=== PATIENT | female | born 1945 | race American Indian/Alaskan Native ===

== ENCOUNTER 2017-03-23 11:02 | Emergency (ER) | payer MEDICARE ==
[2017-03-23 11:12] VITALS: BMI 31.7
[2017-03-23 11:16] VITALS: TEMP 98.8
[2017-03-23] MEDS ORDERED: Sodium Chloride 0.9% 1,000 ML IV STA (11:49)
[2017-03-23] MEDS ORDERED: Iohexol 240 (50 ml) ONE (12:02)
[2017-03-23 12:19] LABS: BASO # 0.02 K/mm3 (0.0-2.0); BASO % 0.2 % (0.0-3.0); EOS # 0.2 (0.0-0.7); EOS % 1.6 % (1.5-5.0); GRAN # 7.72 (1.4-6.5); GRAN % 75.4 % (50.0-68.0); HEMATOCRIT 34.5 % (36.0-48.0); LYMPH # 1.9 (1.2-3.4); LYMPH % 18.9 % (22.0-35.0); MEAN CELL VOLUME 83.1 fl (80.0-105.0); MEAN CORPUSCULAR HEMOGLOBIN 27.5 pg (25.0-35.0); MONO # 0.4 (0.1-0.6); MONO % 3.9 % (1.0-6.0); RED CELL DISTRIBUTION WIDTH 13.3 % (11.5-14.5); WHITE BLOOD COUNT 10.2 10^3/ul (4.5-11.0)
[2017-03-23 12:28] LABS: URINE BILIRUBIN NEGATIVE (NEGATIVE); URINE BLOOD TRACE-INTACT (NEGATIVE); URINE COLOR LIGHT YELLOW (YELLOW); URINE GLUCOSE (UA) NEGATIVE (NEGATIVE); URINE KETONE NEGATIVE (NEGATIVE); URINE LEUKOCYTE ESTERASE SMALL Leu/uL (NEGATIVE); URINE PROTEIN NEGATIVE mg/dL (<30 mg/dL); URINE UROBILINOGEN 0.2 E.U./dL (<1 E.U./dL)
[2017-03-23 12:29] LABS: ALB/GLOB RATIO 1.1 (1.1-1.8); ALKALINE PHOSPHATASE 80 U/L (38-126); ALT/SGPT 25 U/L (7-56); AST/SGOT 19 U/L (14-36); BILIRUBIN,TOTAL 0.3 mg/dL (0.2-1.3); BLOOD UREA NITROGEN 15 mg/dL (7-21); CALCIUM 9.4 mg/dL (8.4-10.5); CARBON DIOXIDE 30 mmol/L (21-33); CHLORIDE 103 mmol/L (98-107); GFR AFRICAN-AMERICAN > 60; GLUCOSE,RANDOM 96 mg/dL (70-110); LIPASE 34 U/L (23-300); SODIUM 142 mmol/L (132-148); TOTAL PROTEIN 7.2 g/dL (5.8-8.3)
[2017-03-23 12:29] LABS: URINE APPEARANCE CLEAR (CLEAR)
[2017-03-23 12:43] LABS: URINE AMORPHOUS SEDIMENT FEW; URINE BACTERIA MOD (NEG); URINE EPITHELIAL CELLS MANY /hpf (0-5)
[2017-03-23] MEDS ORDERED: Iohexol 350 MG/100 ML VIAL ONE (13:37)
--- NOTE | 2017-03-23 14:16 | CT ---
PROCEDURE: CT Abdomen and Pelvis with contrast HISTORY: diffuse abdominal pain - constipated COMPARISON: None. TECHNIQUE: Contrast dose: 100 cc of Omni 350 Radiation dose: Total exam DLP = 465 mGy-cm. This CT exam was performed using one or more of the following dose reduction techniques: Automated exposure control, adjustment of the mA and/or kV according to patient size, and/or use of iterative reconstruction technique. FINDINGS: LOWER THORAX: Unremarkable. LIVER: Unremarkable. No gross lesion or ductal dilatation. GALLBLADDER AND BILE DUCTS: Unremarkable. PANCREAS: Unremarkable. No gross lesion or ductal dilatation. SPLEEN: Unremarkable. ADRENALS: Unremarkable. No mass. KIDNEYS AND URETERS: Unremarkable. No hydronephrosis. No solid mass. VASCULATURE: Unremarkable. No aortic aneurysm. BOWEL: There is moderate constipation and fecal impaction in the rectum. There are some minimal inflammatory changes around the rectum. APPENDIX: Normal appendix. PERITONEUM: Unremarkable. No free fluid. No free air. LYMPH NODES: Unremarkable. No enlarged lymph nodes. BLADDER: Unremarkable. REPRODUCTIVE: Unremarkable. BONES: No acute fracture. OTHER FINDINGS: None. IMPRESSION: There is moderate constipation and fecal impaction in the rectum. There are some minimal inflammatory changes around the rectum.
--- NOTE | 2017-03-23 14:37 | ED PDOC ---
Arrival/HPI - General Chief Complaint: GI Problem Time Seen by Provider: 03/23/17 11:27 Historian: Patient - History of Present Illness Narrative History of Present Illness (Text): 03/23/17 11:43 A 71 year old female, whose past medical history includes CHF, presents to the emergency department complaining of constipation for 4 days. Patient notes he is eating normally, but denies of any fever, vomiting, dysuria, hematuria, or any other complaints. Also, patient states he has had no recent colonoscopy. PMD: Dr. Perea Time/Duration: < week (4 days) Symptom Onset: Sudden Symptom Course: Unchanged Activities at Onset: Rest, Light Past Medical History - Provider Review Nursing Documentation Reviewed: Yes - Infectious Disease Hx of Infectious Diseases: None - Reproductive Menopause: Yes - Cardiac Hx Congestive Heart Failure: Yes Hx Hypertension: Yes - Psychiatric Hx Substance Use: No - Surgical History Hx Tubal Ligation: Yes - Anesthesia Hx Anesthesia Reactions: No Hx Malignant Hyperthermia: No - Suicidal Assessment Feels Threatened In Home Enviroment: No Family/Social History - Physician Review Nursing Documentation Reviewed: Yes Family/Social History: No Known Family HX Smoking Status: Never Smoked Hx Alcohol Use: No Hx Substance Use: No Allergies/Home Meds Allergies/Adverse Reactions: Allergies No Known Allergies Allergy (Verified 03/17/15 12:38) Home Medications: Home Meds Medication Instructions Recorded Confirmed Carvedilol [Coreg] 25 mg PO BID 03/17/15 03/23/17 hydrALAZINE [hydralazine 25 mg PO DAILY 03/17/15 03/23/17 Hydrochloride] Review of Systems - Physician Review All systems were reviewed & negative as marked: Yes - Review of Systems Constitutional: absent: Fevers Gastrointestinal: Constipation. absent: Vomiting, Food Intolerance Genitourinary Female: absent: Dysuria, Hematuria Physical Exam Vital Signs Reviewed: Yes Vital Signs Temp Pulse Resp BP Pulse Ox 03/23/17 14:43 70 17 131/80 98 03/23/17 12:28 68 18 132/75 100 03/23/17 11:03 98.8 F 72 18 134/78 100 Temperature: Afebrile Blood Pressure: Normal Pulse: Regular Respiratory Rate: Normal Appearance: Positive for: Well-Appearing Pain Distress: None Mental Status: Positive for: Alert and Oriented X 3 - Systems Exam Head: Present: Atraumatic, Normocephalic Pupils: Present: PERRL Extroacular Muscles: Present: EOMI Conjunctiva: Present: Normal Mouth: Present: Moist Mucous Membranes Neck: Present: Normal Range of Motion Respiratory/Chest: Present: Clear to Auscultation, Good Air Exchange. No: Respiratory Distress, Accessory Muscle Use Cardiovascular: Present: Regular Rate and Rhythm, Normal S1, S2. No: Murmurs Abdomen: Present: Normal Bowel Sounds. No: Tenderness, Distention, Peritoneal Signs Back: Present: Normal Inspection Upper Extremity: Present: Normal Inspection. No: Cyanosis, Edema Lower Extremity: Present: Normal Inspection. No: Edema Neurological: Present: GCS=15, CN II-XII Intact, Speech Normal Skin: Present: Warm, Dry, Normal Color. No: Rashes Psychiatric: Present: Alert, Oriented x 3, Normal Insight, Normal Concentration Medical Decision Making ED Course and Treatment: 03/23/17 11:50 Impression: Plan: -- Abd/Pelvis CT -- Labs -- IV Fluids -- Urine Culture -- Urinalysis -- Reassess and disposition Prior Visits: Notes and results from previous visits were reviewed. On 03/17/2015 patient came in complaining of left shoulder pain. Patient was discharged home. Progress Notes: 03/23/2017 14:14 Abd/Pelvis CT FINDINGS: LOWER THORAX: Unremarkable. LIVER: Unremarkable. No gross lesion or ductal dilatation. GALLBLADDER AND BILE DUCTS: Unremarkable. PANCREAS: Unremarkable. No gross lesion or ductal dilatation. SPLEEN: Unremarkable. ADRENALS: Unremarkable. No mass. KIDNEYS AND URETERS: Unremarkable. No hydronephrosis. No solid mass. VASCULATURE: Unremarkable. No aortic aneurysm. BOWEL: There is moderate constipation and fecal impaction in the rectum. There are some minimal inflammatory changes around the rectum. APPENDIX: Normal appendix. PERITONEUM: Unremarkable. No free fluid. No free air. LYMPH NODES: Unremarkable. No enlarged lymph nodes. BLADDER: Unremarkable. REPRODUCTIVE: Unremarkable. BONES: No acute fracture. OTHER FINDINGS: None. IMPRESSION: There is moderate constipation and fecal impaction in the rectum. There are some minimal inflammatory changes around the rectum. Dictator : Xavier Nunez MD - Lab Interpretations Lab Results: 03/23/17 11:50 03/23/17 11:50 Lab Results 03/23/17 12:23: Urine Color Light yellow, Urine Appearance Clear, Urine pH 6.0, Ur Specific [place] 1.020, Urine Protein Negative, Urine Glucose (UA) Negative, Urine Ketones Negative, Urine Blood Trace-intact H, Urine Nitrate Negative, Urine Bilirubin Negative, Urine Urobilinogen 0.2, Ur Leukocyte Esterase Small H , Urine RBC 1 - 3, Urine WBC 5 - 10, Ur Epithelial Cells Many, Amorphous Sediment Few, Urine Bacteria Mod, Urine Other Uyeast 03/23/17 11:50: Sodium 142, Potassium 4.0, Chloride 103, Carbon Dioxide 30, Anion Gap 13, BUN 15, Creatinine 0.8, Est GFR ( Amer) > 60, Est GFR (Non- Af Amer) > 60, Random Glucose 96, Calcium 9.4, Total Bilirubin 0.3, AST 19, ALT 25, Alkaline Phosphatase 80, Total Protein 7.2, Albumin 3.8, Globulin 3.4, Albumin/Globulin Ratio 1.1, Lipase 34 03/23/17 11:50: WBC 10.2, RBC 4.15, Hgb 11.4 L, Hct 34.5 L, MCV 83.1, MCH 27.5, MCHC 33.0, RDW 13.3, Plt Count 327, MPV 9.0, Gran % 75.4 H, Lymph % (Auto) 18.9 L, [place] % (Auto) 3.9, Eos % (Auto) 1.6, Baso % (Auto) 0.2, Gran # 7.72 H, Lymph # 1.9, [place] # 0.4, Eos # 0.2, Baso # 0.02 I have reviewed the lab results: Yes - RAD Interpretation Radiology Orders: 03/23/17 11:49 ABD PELVIS PO & IV CONTRAST [CT] Stat - Medication Orders Current Medication Orders: Discontinued Medications Sodium Chloride (Sodium Chloride 0.9%) 1,000 mls @ 100 mls/hr IV .Q10H STA Stop: 03/23/17 21:48 Last Admin: 03/23/17 12:19 Dose: 100 mls/hr Iohexol (Omnipaque 240 (50 Ml)) Confirm Administered Dose 50 ml .ROUTE .STK-MED ONE Stop: 03/23/17 12:03 Iohexol (Omnipaque 350 100 Ml) Confirm Administered Dose 350 mg .ROUTE .STK-MED ONE Stop: 03/23/17 13:38 - Scribe Statement The provider has reviewed the documentation as recorded by the Flavio Slater Provider Scribe Attestation: All medical record entries made by the Scribe were at my direction and personally dictated by me. I have reviewed the chart and agree that the record accurately reflects my personal performance of the history, physical exam, medical decision making, and the department course for this patient. I have also personally directed, reviewed, and agree with the discharge instructions and disposition. Disposition/Present on Arrival - Present on Arrival Any Indicators Present on Arrival: No History of DVT/PE: No History of Uncontrolled Diabetes: No Urinary Catheter: No History of Decub. Ulcer: No History Surgical Site Infection Following: None - Disposition Have Diagnosis and Disposition been Completed?: Yes Diagnosis: Constipation Disposition: HOME/ ROUTINE Disposition Time: 14:15 Condition: GOOD Discharge Instructions (ExitCare): Constipation (ED) Additional Instructions: Thank you for letting us take care of you today. Your provider was Dr. Rai. You were treated for constipation. The emergency medical care you received today was directed at your acute symptoms. If you were prescribed any medication, please fill it and take as directed. It may take several days for your symptoms to resolve. Return to the Emergency Department if your symptoms worsen, do not improve, or if you have any other problems. Please contact your doctor or call one of the physicians/clinics you have been referred to that are listed on the Patient Visit Information form that is included in your discharge packet. Bring any paperwork you were given at discharge with you along with any medications you are taking to your follow up visit. Our treatment cannot replace ongoing medical care by a primary care provider (PCP) outside of the emergency department. Thank you for allowing the [facility] team to be part of your care today. Follow up with your doctor in 2-3 days for re-evaluation and further management. Prescriptions: Polyethylene Glycol 3350 [Miralax] 17 g PO TID PRN 7 Days PRN Reason: Constipation Referrals: Ginger Perea MD [Primary Care Provider] - Follow up with primary Forms: [employer] (Belizean)
[2017-03-23 14:44] VITALS: BP 131/80; PULSE 70; RESP 17; O2SAT 98
== END 2017-03-23 14:44 | disposition home or self-care (01) ==
LOC: ED 11:02
DX: K59.00 Constipation, unspecified (principal); I10 Essential (primary) hypertension
CPT/HCPCS: 74177; 80053; 81001; 83690; 85025; 87086; 99285; J7040; Q9966; Q9967

== ENCOUNTER 2018-01-28 20:51 | Emergency (ER) | payer MEDICARE ==
[2018-01-28 20:51] VITALS: BMI 31.7
[2018-01-28 21:03] VITALS: TEMP 99
--- NOTE | 2018-01-28 21:31 | ED PDOC ---
Arrival/HPI - General Chief Complaint: Lower Extremity Problem/Injury Time Seen by Provider: 01/28/18 21:14 Historian: Patient - History of Present Illness Narrative History of Present Illness (Text): 01/28/18 21:31 Janis Jorge is a 72 year old female, whose past medical history includes hypertension, who presents to the Emergency department complaining of right knee pain. Patient states she developed right knee pain while stretching in [employer] class this morning. Patient states she has been icing the area with no significant relief and denies taking any pain medication. Patient denies any other trauma/injury, decreased range of motion, weakness/numbness/tingling in the extremity, or any other complaints. Time/Duration: 4-6 hours (this morning) Symptom Onset: Sudden Symptom Course: Unchanged Activities at Onset: Light Context: Other (stretching in [employer] class) Past Medical History - Provider Review Nursing Documentation Reviewed: Yes - Infectious Disease Hx of Infectious Diseases: None - Cardiac Hx Cardiac Disorders: Yes Hx Congestive Heart Failure: Yes Hx Hypertension: Yes - Pulmonary Hx Respiratory Disorders: No - Neurological Hx Neurological Disorder: No - HEENT Hx HEENT Disorder: No - Renal Hx Renal Disorder: No - Endocrine/Metabolic Hx Endocrine Disorders: No - Hematological/Oncological Hx Blood Disorders: No - Integumentary Hx Dermatological Disorder: No - Musculoskeletal/Rheumatological Hx Musculoskeletal Disorders: No - Gastrointestinal Hx Gastrointestinal Disorders: No - Genitourinary/Gynecological Hx Genitourinary Disorders: No - Psychiatric Hx Psychophysiologic Disorder: No Hx Substance Use: No - Surgical History Hx Tubal Ligation: Yes - Anesthesia Hx Anesthesia Reactions: No Hx Malignant Hyperthermia: No - Suicidal Assessment Feels Threatened In Home Enviroment: No Family/Social History - Physician Review Nursing Documentation Reviewed: Yes Family/Social History: Unknown Family HX Smoking Status: Never Smoked Hx Alcohol Use: No Hx Substance Use: No Allergies/Home Meds Allergies/Adverse Reactions: Allergies No Known Allergies Allergy (Verified 01/28/18 20:58) Home Medications: Home Meds Medication Instructions Recorded Confirmed Carvedilol [Coreg] 25 mg PO BID 03/17/15 01/28/18 hydrALAZINE [hydralazine 25 mg PO DAILY 03/17/15 01/28/18 Hydrochloride] Ergocalciferol (Vitamin D2) 1 cap PO DAILY 01/28/18 01/28/18 [Vitamin D2] Review of Systems - Physician Review All systems were reviewed & negative as marked: Yes - Review of Systems Constitutional: Normal. absent: Fevers Eyes: Normal ENT: Normal Respiratory: Normal. absent: SOB Cardiovascular: Normal. absent: Chest Pain Gastrointestinal: Normal. absent: Abdominal Pain, Diarrhea, Nausea, Vomiting Genitourinary Female: Normal Musculoskeletal: Arthralgias (right knee pain) Skin: Normal Neurological: Normal. absent: Headache Endocrine: Normal. absent: Diaphoresis Hemo/Lymphatic: Normal Psychiatric: Normal Physical Exam Vital Signs Reviewed: Yes Vital Signs Temp Pulse Resp BP Pulse Ox 01/28/18 20:59 99.0 F 76 16 134/81 99 Temperature: Afebrile Blood Pressure: Normal Pulse: Regular Respiratory Rate: Normal Appearance: Positive for: Well-Appearing, Non-Toxic, Comfortable Pain Distress: None Mental Status: Positive for: Alert and Oriented X 3 - Systems Exam Head: Present: Atraumatic, Normocephalic Pupils: Present: PERRL Extroacular Muscles: Present: EOMI Conjunctiva: Present: Normal Mouth: Present: Moist Mucous Membranes Neck: Present: Normal Range of Motion Respiratory/Chest: Present: Clear to Auscultation, Good Air Exchange. No: Respiratory Distress, Accessory Muscle Use Cardiovascular: Present: Regular Rate and Rhythm, Normal S1, S2. No: Murmurs Abdomen: No: Tenderness, Distention, Peritoneal Signs Back: Present: Normal Inspection Upper Extremity: Present: Normal Inspection. No: Cyanosis, Edema Lower Extremity: Present: NORMAL PULSES, Normal ROM, Tenderness (minimal discomfort with right knee flexion, no laxity noted), Neurovascularly Intact, Capillary Refill < 2 s. No: Edema, CALF TENDERNESS, Cyanosis, Swelling, Erythema, Deformity, Temperature Abnormalties Neurological: Present: GCS=15, CN II-XII Intact, Speech Normal Skin: Present: Warm, Dry, Normal Color. No: Rashes Psychiatric: Present: Alert, Oriented x 3, Normal Insight, Normal Concentration Medical Decision Making ED Course and Treatment: 01/28/18 21:31 Impression: Janis Jorge is a 72 year old female who presents to the Emergency department for right knee pain. Differential Diagnosis included but are not limited to: sprain Plan: -- X-Ray right knee -- Motrin -- Reassess and disposition Progress Notes: 01/28/18 22:32 Reviewed X-RAY right knee, shows no acute processes/no fractures. 01/28/18 22:51 On re-evaluation, patient feels better and is in no acute distress. I have discussed the results and plan with the patient, who expresses understanding. Patient in agreement with plan to be discharged home. Patient is stable for discharge. Patient was instructed to follow up with physician or return if symptoms worsen or new concerning symptoms arise. - RAD Interpretation Radiology Orders: 01/28/18 21:34 KNEE RIGHT 2 VIEWS (AP & LAT) [RAD] Stat Technical Aide: ED Physician - Medication Orders Current Medication Orders: Discontinued Medications Ibuprofen (Motrin Tab) 600 mg PO STAT STA Stop: 01/28/18 21:36 Last Admin: 01/28/18 21:39 Dose: 600 mg MAR Pain/Vitals Document 01/28/18 21:39 AD (Rec: 01/28/18 21:40 AD [id number]) Pain Reassessment Is This A Pain ReAssessment? No Presence of Pain Presence of Pain Yes Pain Scale Used Pain Scale Used Numeric Location Left, Right or Bilateral Right Pain Location Body Site Knee Intensity 8 - Scribe Statement The provider has reviewed the documentation as recorded by the Scribe Becki Haley, under the training of Lisa Walker. All medical record entries made by the Scribe were at my direction and personally dictated by me. I have reviewed the chart and agree that the record accurately reflects my personal performance of the history, physical exam, medical decision making, and the department course for this patient. I have also personally directed, reviewed, and agree with the discharge instructions and disposition. Disposition/Present on Arrival - Present on Arrival Any Indicators Present on Arrival: No History of DVT/PE: No History of Uncontrolled Diabetes: No Urinary Catheter: No History of Decub. Ulcer: No History Surgical Site Infection Following: None - Disposition Have Diagnosis and Disposition been Completed?: Yes Diagnosis: Knee sprain Disposition: HOME/ ROUTINE Disposition Time: 22:51 Patient Plan: Discharge Patient Problems: Current Active Problems Problem Status Onset Knee sprain Acute Condition: STABLE Discharge Instructions (ExitCare): Knee Sprain (DC) Additional Instructions: Maintain knee immobilizer/use crutches/no weight bearing on the affected area/ take meds as prescribed/follow up with the orthopedist this week Dr.[email or web address] Prescriptions: Naproxen [Naprosyn Tab] 375 mg PO BID PRN #14 tab PRN Reason: Pain, Moderate (4-7) Referrals: Ginger Perea MD [Primary Care Provider] - Follow up with primary Forms: [employer] (Gambian)
[2018-01-28 23:19] VITALS: BP 127/82; PULSE 75; RESP 18; O2SAT 100
--- NOTE | 2018-01-29 08:59 | RAD ---
Date of service: 01/28/2018 PROCEDURE: Right Knee Radiographs. HISTORY: Injury COMPARISON: None. FINDINGS: BONES: Bone alignment and mineralization are normal. There is no acute displaced fracture or bone destruction. JOINTS: Normal. JOINT EFFUSION: There is a small suprapatellar joint effusion. OTHER FINDINGS: None. IMPRESSION: No acute fracture or dislocation.
== END 2018-01-28 23:19 | disposition home or self-care (01) ==
LOC: ED 20:51
DX: S83.91XA Sprain of unspecified site of right knee, initial encounter (principal); X50.0XXA Overexertion from strenuous movement or load, initial encounter; Y93.49 Activity, other involving dancing and other rhythmic movements; Y92.89 Other specified places as the place of occurrence of the external cause

== ENCOUNTER 2018-04-26 06:29 | Day surgery (SDC) | payer MEDICARE ==
[2018-04-26] MEDS ORDERED: Lidocaine 1% Inj (20ml) ONE (08:00)
[2018-04-26] MEDS ORDERED: Propofol 10 mg/ml Inj (20 ML) ONE (08:00)
[2018-04-26 08:31] VITALS: O2SAT 100
[2018-04-26] MEDS ORDERED: ePHEDrine 50 mg/ml Inj ONE (08:37)
[2018-04-26] MEDS ORDERED: Sodium Chloride 0.9% 1,000 ML IV SCH (09:00)
[2018-04-26 09:32] VITALS: BP 126/74; PULSE 69; RESP 16; TEMP 97.9
== END 2018-04-26 10:18 | disposition home or self-care (01) ==
LOC: ENDO 06:29
PROVIDERS: ATTEND Internal Medicine Gastroenterology
DX: Z12.11 Encounter for screening for malignant neoplasm of colon (principal); K57.30 Diverticulosis of large intestine without perforation or abscess without bleeding; K64.1 Second degree hemorrhoids
CPT/HCPCS: 45378; J2704; J7030; J7040

== ENCOUNTER 2018-07-20 10:03 | Outpatient (CLI) | payer MEDICARE | END 2018-07-20 10:04 | disposition home or self-care (01) | LOC: RAD 10:03 ==

== ENCOUNTER 2018-07-24 03:36 | Observation (INO) | payer MEDICARE, OTHER ==
[2018-07-24 03:48] VITALS: BMI 30.2
[2018-07-24] MEDS ORDERED: Morphine 2 mg/ml ISec IVP STA (04:14)
[2018-07-24] MEDS ORDERED: Sodium Chloride 0.9% 500 ML IV SCH (04:15)
--- NOTE | 2018-07-24 04:15 | ED PDOC ---
Arrival/HPI - General Chief Complaint: Back Pain Time Seen by Provider: 07/24/18 03:37 Historian: Patient - History of Present Illness Narrative History of Present Illness (Text): 07/24/18 04:11 73 year old female, whose past medical history includes CHF and hypertension, presents to the emergency department complaining of left flank pain with nausea. Patient informs pain was sudden onset, at 02:30 today. Patient states she was asleep and was awoken by the pain. Patient states she was unable to get back to sleep. Patient denies any fevers, chills, headache, dizziness, shortness of breath, chest pain, cough, vomiting, diarrhea, neck pain, or any other complaints. PMD: Dr. Perea Time/Duration: 1-3 hours Symptom Onset: Sudden Symptom Course: Unchanged Quality: Stabbing Activities at Onset: Sleeping Context: Home Past Medical History - Provider Review Nursing Documentation Reviewed: Yes - Infectious Disease Hx of Infectious Diseases: None - Cardiac Hx Congestive Heart Failure: Yes Hx Hypertension: Yes Hx Pacemaker: No - Pulmonary Hx Respiratory Disorders: No - Neurological Hx Paralysis: No - HEENT Hx HEENT Disorder: No - Renal Hx Renal Disorder: No - Endocrine/Metabolic Hx Endocrine Disorders: No - Hematological/Oncological Hx Blood Transfusions: Yes Hx Blood Transfusion Reaction: Yes (HEADACHE) - Integumentary Hx Dermatological Disorder: No - Musculoskeletal/Rheumatological Hx Musculoskeletal Disorders: No - Gastrointestinal Hx Gastrointestinal Disorders: No - Genitourinary/Gynecological Hx Genitourinary Disorders: No - Psychiatric Hx Emotional Abuse: No Hx Physical Abuse: No Hx Substance Use: No - Surgical History Hx Tubal Ligation: Yes - Anesthesia Hx Anesthesia Reactions: No Hx Malignant Hyperthermia: No - Suicidal Assessment Feels Threatened In Home Enviroment: No Family/Social History - Physician Review Nursing Documentation Reviewed: Yes Family/Social History: No Known Family HX Smoking Status: Never Smoked Hx Alcohol Use: No Hx Substance Use: No Allergies/Home Meds Allergies/Adverse Reactions: Allergies No Known Allergies Allergy (Verified 07/24/18 04:02) Home Medications: Home Meds Medication Instructions Recorded Confirmed Carvedilol [Coreg] 25 mg PO BID 03/17/15 07/24/18 hydrALAZINE [hydralazine 50 mg PO DAILY 03/17/15 07/24/18 Hydrochloride] Cholecalciferol (Vitamin D3) 2,000 unit PO DAILY 10/08/18 01/09/19 [Vitamin D3] Review of Systems - Physician Review All systems were reviewed & negative as marked: Yes - Review of Systems Constitutional: absent: Fevers, Night Sweats Respiratory: absent: SOB, Cough Cardiovascular: absent: Chest Pain Gastrointestinal: Abdominal Pain (Left flank pain), Nausea. absent: Diarrhea, Vomiting Musculoskeletal: absent: Neck Pain Neurological: absent: Headache, Dizziness Physical Exam Vital Signs Reviewed: Yes Vital Signs Temp Pulse Resp BP Pulse Ox 07/24/18 03:58 98.1 F 07/24/18 03:46 71 18 147/75 99 Blood Pressure: Normal Pulse: Regular Respiratory Rate: Normal Appearance: Positive for: Well-Appearing, Non-Toxic, Comfortable Pain Distress: None Mental Status: Positive for: Alert and Oriented X 3 - Systems Exam Head: Present: Atraumatic, Normocephalic Pupils: Present: PERRL Extroacular Muscles: Present: EOMI Conjunctiva: Present: Normal Mouth: Present: Moist Mucous Membranes Neck: Present: Normal Range of Motion Respiratory/Chest: Present: Clear to Auscultation, Good Air Exchange. No: Respiratory Distress, Accessory Muscle Use Cardiovascular: Present: Regular Rate and Rhythm, Normal S1, S2. No: Murmurs Abdomen: No: Distention, Peritoneal Signs Back: Present: CVA Tenderness (Left sided) Upper Extremity: Present: Normal Inspection. No: Cyanosis, Edema Lower Extremity: Present: Normal Inspection. No: Edema Neurological: Present: GCS=15, CN II-XII Intact, Speech Normal Skin: Present: Warm, Dry, Normal Color. No: Rashes Psychiatric: Present: Alert, Oriented x 3, Normal Insight, Normal Concentration Medical Decision Making ED Course and Treatment: 07/24/18 04:17 Impression: 73 year old female presents with sudden onset left flank pain Plan: -- CT ABD& Pelvis -- EKG -- CMP, Lipase -- CBC -- Chest X-ray -- Morphine -- Zofran -- Urinalysis -- Reassess and disposition Prior Visits: Notes and results from previous visits were reviewed. Progress Notes: 07/24/18 04:37 EKG reviewed by me, shows: Normal sinus rhythm @ 64bpm LBBB Nonspecific STT wave changes 07/24/18 05:59 CT Abd/pelvis-CT SCAN OF THE ABDOMEN AND PELVIS WITHOUT ORAL OR IV CONTRAST. CLINICAL INDICATION: Left flank pain. TECHNIQUE: Axial and reformatted sagittal and coronal images of the abdomen pelvis obtained without IV contrast administration. COMPARISON: 03/23/2017. FINDINGS: The visualized lung bases are unremarkable. Normal unenhanced liver. Normal gallbladder and extrahepatic biliary system. Normal unenhanced spleen. Normal pancreas. Normal bilateral adrenal glands. Normal size of the right kidney. There is no right renal mass. There are no right renal calculi. There is no right hydronephrosis. Normal visualized right ureter. Normal size of the left kidney. There is no left renal mass. There are no left renal calculi. 3.5 mm obstructing stone of the left ureterovesical junction. Mild left hydroureteronephrosis. Normal visualized stomach. Normal small intestine. Uncomplicated diverticulosis with mild amount of fecal residue in the colon. The appendix is visualized and appears normal. There is no demonstrated peritoneal fluid. Normal abdominal aorta. Normal inferior vena cava. Normal retroperitoneum. Normal urinary bladder. There is no pelvic mass lesion or lymphadenopathy. There is no pelvic fluid. Normal abdominal wall. Normal osseous structures. Mild changes of central mesenteric panniculitis. IMPRESSION: Obstructing stone of the left ureterovesical junction. 07/24/18 06:01 Case was discussed with who accepts to his service. on consult.resident physician notified. - Scribe Statement The provider has reviewed the documentation as recorded by the Scribe Sheng Barnes Provider Scribe Attestation: All medical record entries made by the Scribe were at my direction and personally dictated by me. I have reviewed the chart and agree that the record accurately reflects my personal performance of the history, physical exam, medical decision making, and the department course for this patient. I have also personally directed, reviewed, and agree with the discharge instructions and disposition. Disposition/Present on Arrival - Present on Arrival Any Indicators Present on Arrival: No History of DVT/PE: No History of Uncontrolled Diabetes: No Urinary Catheter: No History of Decub. Ulcer: No History Surgical Site Infection Following: None - Disposition Have Diagnosis and Disposition been Completed?: Yes Diagnosis: Renal colic, Intractable pain Disposition: HOSPITALIZED Disposition Time: 05:59 Patient Plan: Observation Patient Problems: Current Active Problems Problem Status Onset Intractable pain Acute Renal colic Acute Condition: STABLE Referrals: Ginger Perea MD [Primary Care Provider] - Follow up with primary Forms: [employer] ([place])
[2018-07-24 04:38] LABS: ALB/GLOB RATIO 1.2 (1.1-1.8); ALBUMIN 4.1 g/dL (3.0-4.8); ALT/SGPT 24 U/L (7-56); AST/SGOT 22 U/L (14-36); BLOOD UREA NITROGEN 18 mg/dL (7-21); CALCIUM 9.4 mg/dL (8.4-10.5); GFR NON-AFRICAN AMERICAN > 60; LIPASE 39 U/L (23-300)
[2018-07-24 04:39] LABS: HEMOGLOBIN 10.9 g/dL (12.0-16.0); MEAN CELL VOLUME 85.4 fl (80.0-105.0); MEAN CORPUSCULAR HGB CONC 31.7 g/dl (31.0-37.0); MEAN PLATELET VOLUME 9.7 fl (7.0-11.0); RBC 4.03 10^6/uL (3.5-6.1); RED CELL DISTRIBUTION WIDTH 14.1 % (11.5-14.5)
[2018-07-24] MEDS ORDERED: Morphine 4 mg/ml ISec IVP STA ×2 (05:57→06:55)
[2018-07-24] MEDS ORDERED: DiphenhydrAMINE 50 mg/ml Inj IVP ONE (05:57)
[2018-07-24] MEDS ORDERED: cefTRIAXone 1 gm 1 GM/100 ML BAG IV STA (06:00)
[2018-07-24 06:10] LABS: URINE BILIRUBIN NEGATIVE (NEGATIVE); URINE BLOOD LARGE (NEGATIVE); URINE GLUCOSE (UA) NEGATIVE (NEGATIVE); URINE LEUKOCYTE ESTERASE SMALL Leu/uL (NEGATIVE); URINE PROTEIN 30 mg/dL (<30 mg/dL); URINE UROBILINOGEN 0.2 E.U./dL (<1 E.U./dL)
[2018-07-24 06:12] LABS: URINE COLOR YELLOW (YELLOW)
[2018-07-24 06:13] LABS: URINE APPEARANCE SL CLOUDY (CLEAR)
[2018-07-24 06:21] LABS: URINE BACTERIA MOD /hpf; URINE RBC 20 - 25 /hpf (0-2); URINE WBC 0 - 2 /hpf (0-6)
[2018-07-24] MEDS ORDERED: Vancomycin 1gm in NS 250ml 1 GM/250 ML BAG IVPB STA (07:19)
[2018-07-24] MEDS ORDERED: Sodium Chloride 0.9% 1,000 ML IV SCH ×2 (07:30→14:00)
[2018-07-24] MEDS ORDERED: Morphine 2 mg/ml ISec IM PRN (07:32)
--- NOTE | 2018-07-24 07:38 | CP.PCM.HP ---
History of Present Illness - History of Present Illness History of Present Illness: CC: Left Flank Pain HPI: Patient is a 73 yo F with PMH of CHF and HTN presents to [facility] for left flank pain that radiates to left groin. Patient states that she awoke last night around 2:30 am with sharp left flank pain and associated nausea and vomiting. Patient states that this has never happened before and that she felt well during the day. Patient admits to cloudy urine, but no dysuria or discharge. Patient states that her pain is currently mild, but required several doses of morphine while in the ED. Nausea has since subsided. Patient denies CP, SOB, diarrhea, constipation, abdominal pain, fever, chills, YADAV, or dizziness. PMD: Reisner PMH: CHF, HTN Surg: Partial Hysterectomy All: NKDA SH: Denies tobacco, EtOH, and illicit drug use FHx: DM Medications: Coreg and Hydralazine Present on Admission - Present on Admission Any Indicators Present on Admission: No Review of Systems - Review of Systems All systems: reviewed and no additional remarkable complaints except (12 point ROS reviewed and is negative other than what is stated in HPI.) Past Patient History - Infectious Disease Hx of Infectious Diseases: None - Past Social History Smoking Status: Never Smoked - CARDIAC Hx Congestive Heart Failure: Yes Hx Hypertension: Yes Hx Pacemaker: No - PULMONARY Hx Respiratory Disorders: No - NEUROLOGICAL Hx Paralysis: No - HEENT Hx HEENT Problems: No - RENAL Hx Chronic Kidney Disease: No - ENDOCRINE/METABOLIC Hx Endocrine Disorders: No - HEMATOLOGICAL/ONCOLOGICAL Hx Blood Transfusions: Yes Hx Blood Transfusion Reaction: Yes (HEADACHE) - INTEGUMENTARY Hx Dermatological Problems: No - MUSCULOSKELETAL/RHEUMATOLOGICAL Hx Musculoskeletal Disorders: No - GASTROINTESTINAL Hx Gastrointestinal Disorders: No - GENITOURINARY/GYNECOLOGICAL Hx Genitourinary Disorders: No - PSYCHIATRIC Hx Emotional Abuse: No Hx Physical Abuse: No Hx Substance Use: No - SURGICAL HISTORY Hx Tubal Ligation: Yes - ANESTHESIA Hx Anesthesia Reactions: No Hx Malignant Hyperthermia: No Meds Allergies/Adverse Reactions: Allergies Allergy/AdvReac Type Severity Reaction Status Date / Time No Known Allergies Allergy Verified 07/24/18 04:02 Physical Exam - Constitutional Appears: No Acute Distress - Head Exam Head Exam: NORMAL INSPECTION - Eye Exam Eye Exam: Normal appearance - ENT Exam ENT Exam: Mucous Membranes Moist, Normal Exam - Neck Exam Neck exam: Positive for: Normal Inspection - Respiratory Exam Respiratory Exam: Clear to Auscultation Bilateral. absent: Rales, Rhonchi, Wheezes, Respiratory Distress - Cardiovascular Exam Cardiovascular Exam: RRR, +S1, +S2. absent: Diastolic murmur, Gallop, Rubs, Systolic Murmur - GI/Abdominal Exam GI & Abdominal Exam: Soft. absent: Distended, Guarding, Rebound, Tenderness - Extremities Exam Extremities exam: Positive for: normal inspection - Back Exam Back exam: CVA tenderness (L) (mild) - Neurological Exam Neurological exam: Alert, CN II-XII Intact, Oriented x3 - Psychiatric Exam Psychiatric exam: Normal Affect, Normal Mood - Skin Skin Exam: Dry, Intact, Normal Color, Warm Results - Vital Signs Recent Vital Signs: Last Vital Signs Temp 98.1 F 07/24/18 03:58 Pulse 72 07/24/18 06:00 Resp 18 07/24/18 06:00 BP 133/63 07/24/18 06:00 Pulse Ox 98 07/24/18 06:00 - Labs Result Diagrams: 07/24/18 04:15 07/24/18 04:15 Labs: Laboratory Results - last 24 hr 07/24/18 07/24/18 07/24/18 04:15 04:15 05:50 WBC 16.0 H RBC 4.03 Hgb 10.9 L Hct 34.4 L MCV 85.4 MCH 27.0 MCHC 31.7 RDW 14.1 Plt Count 274 MPV 9.7 Sodium 139 Potassium 4.3 Chloride 105 Carbon Dioxide 29 Anion Gap 9 L BUN 18 Creatinine 0.8 Est GFR ( Amer) > 60 Est GFR (Non-Af Amer) > 60 Random Glucose 136 H Calcium 9.4 Total Bilirubin 0.2 AST 22 ALT 24 Alkaline Phosphatase 86 Total Protein 7.5 Albumin 4.1 Globulin 3.4 Albumin/Globulin Ratio 1.2 Lipase 39 Urine Color Yellow Urine Appearance Sl cloudy Urine pH 6.0 Ur Specific [place] >= 1.030 Urine Protein 30 H Urine Glucose (UA) Negative Urine Ketones Trace H Urine Blood Large H Urine Nitrate Negative Urine Bilirubin Negative Urine Urobilinogen 0.2 Ur Leukocyte Esterase Small H Urine RBC 20 - 25 H Urine WBC 0 - 2 Ur Epithelial Cells 3 - 4 Urine Bacteria Mod Assessment & Plan - Assessment and Plan (Free Text) Assessment: 73 yo F with PMH of CHF and HTN presents to [facility] for left flank pain. Patient to be evaluated and treated for left nephrolithiasis with mild hydronephrosis. Plan: 1. Left nephrolithiasis with mild hydronephrosis - CT abd/pelvis showed 3.5 mm obstructing left UVJ and mild left hydrouretonephrosis - UA showed large blood, RBC 20-25, WBC 0-2 - Abdominal US ordered - Rocephin - Vancomycin x1 - NS 150 cc/hr x 1L then 100 cc/hr - Flomax - Tylenol, Toradol, Morphine prn for pain - Strain urine for calculi - NPO - Urology consulted 2. Anemia - Hgb 10.9 - Iron studies - Erythopoetin - Retic count - Stool for occult blood 3. Leukocytosis - WBC 16, possibly reactive - UA negative for UTI - CXR negative - Cultures ordered - Procal ordered - Rocephin/Vanco 4. Hyperglycemia - Random blood glucose 136 - HgbA1c, Frutosamine, Glycomark ordered 5. CHF - EKG: rate 64, NSR, LBBB, non-specific ST-T wave changes; LBBB seen on EKG in 2014 - Coreg, hydralazine - Echo ordered 6. HTN - Coreg, hydralazine 7. Vitamin D Deficiency - Vit D level - Cholecalciferol GI/DVT PPx - Protonix - SCDs Patient seen and discussed in detail with Dr. Ackerman. Panchito De León, DO PGY2
[2018-07-24] MEDS ORDERED: Morphine 2 mg/ml ISec IVP PRN (07:48)
[2018-07-24 08:36] LABS: URIC ACID 4.4 mg/dL (2.5-6.2)
[2018-07-24 08:51] LABS: T4 7.6 ug/dL (5.5-11.0)
[2018-07-24] MEDS ORDERED: Influenza Vaccine 60 mcg/0.5 mL SYR (4YR UP) IM ONE (09:35)
[2018-07-24] MEDS ORDERED: Pneumococcal 23-Valent Vaccine IM ONE (09:35)
--- NOTE | 2018-07-24 09:52 | CT ---
Date of service: 07/24/2018 PROCEDURE: CT Abdomen and Pelvis without intravenous contrast HISTORY: left flank pain COMPARISON: 03/23/2017 TECHNIQUE: Without contrast.. Contrast dose: Radiation dose: Total exam DLP = 521.99 mGy-cm. This CT exam was performed using one or more of the following dose reduction techniques: Automated exposure control, adjustment of the mA and/or kV according to patient size, and/or use of iterative reconstruction technique. FINDINGS: LOWER THORAX: Unremarkable. LIVER: Unremarkable. No gross lesion or ductal dilatation. GALLBLADDER AND BILE DUCTS: Unremarkable. PANCREAS: Unremarkable. No gross lesion or ductal dilatation. SPLEEN: Unremarkable. ADRENALS: Unremarkable. No mass. KIDNEYS AND URETERS: There is a 3 mm left UVJ stone. There is minimal hydronephrosis and hydroureter VASCULATURE: Unremarkable. No aortic aneurysm. No aortic atherosclerotic calcification or mural plaque present. BOWEL: Unremarkable. No obstruction. No gross mural thickening. APPENDIX: Unremarkable. Normal appendix. PERITONEUM: Unremarkable. No free fluid. No free air. LYMPH NODES: Unremarkable. No enlarged lymph nodes. BLADDER: Unremarkable. REPRODUCTIVE: Unremarkable. BONES: No acute fracture. OTHER FINDINGS: The report concurs with the preliminary [facility] report IMPRESSION: There is a 3 mm left UVJ stone. There is minimal hydronephrosis and hydroureter
[2018-07-24] MEDS ORDERED: Enoxaparin 40 mg Syringe SC SCH (10:00)
[2018-07-24] MEDS ORDERED: POLYETHYLENE GLYCOL 3350 17 GM/Dose PACKET PO SCH (10:00)
[2018-07-24 10:48] LABS: INR 0.94; PARTIAL THROMBOPLASTIN TIME 30.6 Seconds (25.1-36.5); PROTHROMBIN TIME 10.8 SECONDS (9.4-12.5)
[2018-07-24] MEDS: cefTRIAXone 2 GM IN NS 2 GM/100 ML BAG IVPB SCH (11:35)
[2018-07-24] MEDS: Cholecalciferol 1,000 INTLU TAB PO SCH (11:35)
--- NOTE | 2018-07-24 11:44 | PCM.URO ---
Urology Progress Note - Subjective Abdominal Pain: Yes (pt for cystoscopy today) - Objective Lab Results Last 24 Hours: Laboratory Results - last 24 hr 07/24/18 07/24/18 07/24/18 04:15 04:15 05:50 WBC 16.0 H RBC 4.03 Hgb 10.9 L Hct 34.4 L MCV 85.4 MCH 27.0 MCHC 31.7 RDW 14.1 Plt Count 274 MPV 9.7 ESR Retic Count PT INR APTT Sodium 139 Potassium 4.3 Chloride 105 Carbon Dioxide 29 Anion Gap 9 L BUN 18 Creatinine 0.8 Est GFR ( Amer) > 60 Est GFR (Non-Af Amer) > 60 Random Glucose 136 H Lactic Acid Uric Acid Calcium 9.4 Iron TIBC % Saturation Total Bilirubin 0.2 AST 22 ALT 24 Alkaline Phosphatase 86 Total Protein 7.5 Albumin 4.1 Globulin 3.4 Albumin/Globulin Ratio 1.2 Lipase 39 Free T4 Thyroxine (T4) TSH 3rd Generation Urine Color Yellow Urine Appearance Sl cloudy Urine pH 6.0 Ur Specific [place] >= 1.030 Urine Protein 30 H Urine Glucose (UA) Negative Urine Ketones Trace H Urine Blood Large H Urine Nitrate Negative Urine Bilirubin Negative Urine Urobilinogen 0.2 Ur Leukocyte Esterase Small H Urine RBC 20 - 25 H Urine WBC 0 - 2 Ur Epithelial Cells 3 - 4 Urine Bacteria Mod 07/24/18 07/24/18 07/24/18 07:45 07:45 07:45 WBC RBC Hgb Hct MCV MCH MCHC RDW Plt Count MPV ESR Retic Count PT INR APTT Sodium Potassium Chloride Carbon Dioxide Anion Gap BUN Creatinine Est GFR ( Amer) Est GFR (Non-Af Amer) Random Glucose Lactic Acid 1.8 Uric Acid Calcium Iron 36 L TIBC 259 L % Saturation 14 L Total Bilirubin AST ALT Alkaline Phosphatase Total Protein Albumin Globulin Albumin/Globulin Ratio Lipase Free T4 1.00 Thyroxine (T4) 7.6 TSH 3rd Generation 1.10 Urine Color Urine Appearance Urine pH Ur Specific [place] Urine Protein Urine Glucose (UA) Urine Ketones Urine Blood Urine Nitrate Urine Bilirubin Urine Urobilinogen Ur Leukocyte Esterase Urine RBC Urine WBC Ur Epithelial Cells Urine Bacteria 07/24/18 07/24/18 07/24/18 07:45 07:45 08:38 WBC RBC Hgb Hct MCV MCH MCHC RDW Plt Count MPV ESR 12 Retic Count 0.75 PT 10.8 INR 0.94 APTT 30.6 Sodium Potassium Chloride Carbon Dioxide Anion Gap BUN Creatinine Est GFR ( Amer) Est GFR (Non-Af Amer) Random Glucose Lactic Acid Uric Acid 4.4 Calcium Iron TIBC % Saturation Total Bilirubin AST ALT Alkaline Phosphatase Total Protein Albumin Globulin Albumin/Globulin Ratio Lipase Free T4 Thyroxine (T4) TSH 3rd Generation Urine Color Urine Appearance Urine pH Ur Specific [place] Urine Protein Urine Glucose (UA) Urine Ketones Urine Blood Urine Nitrate Urine Bilirubin Urine Urobilinogen Ur Leukocyte Esterase Urine RBC Urine WBC Ur Epithelial Cells Urine Bacteria Intake & Output: Intake & Output 07/23/18 07/24/18 07/24/18 18:59 06:59 18:59 Weight 165 lb Vital Signs: Vital Signs - 24 hr 07/24/18 07/24/18 07/24/18 03:46 03:58 06:00 Temperature 98.1 F Pulse Rate 71 72 Respiratory 18 18 Rate Blood Pressure 147/75 133/63 O2 Sat by Pulse 99 98 Oximetry 07/24/18 07/24/18 07/24/18 07:48 09:15 09:17 Temperature Pulse Rate 74 74 Respiratory 19 19 16 Rate Blood Pressure 122/54 L 122/54 L O2 Sat by Pulse 97 97 Oximetry 07/24/18 11:34 Temperature Pulse Rate 76 Respiratory Rate Blood Pressure 131/64 O2 Sat by Pulse Oximetry
--- NOTE | 2018-07-24 12:00 | US ---
HISTORY: ANEMIA/KIDNEY STONE COMPARISON: None available. TECHNIQUE: Sonographic evaluation of the abdomen. FINDINGS: LIVER: Measures 15.2 cm in sagittal dimension and appears within normal limits of size, shape, and echotexture. No focal hepatic mass identified. The main portal vein appears patent with normal directional flow. No intrahepatic bile duct dilatation. GALLBLADDER: No gallstones. No gallbladder wall thickening. Negative sonographic Falcon's sign as assessed by the edge sander. COMMON BILE DUCT: Measures 5 mm. PANCREAS: Not well visualized. RIGHT KIDNEY: Measures 10.1 x 4.5 x 4.5 cm. Mild fullness of the right renal collecting system. No obstructing calculus. LEFT KIDNEY: Measures 10.2 x 5.3 x 5.5 cm. Mild fullness of the left renal collecting system. No obstructing calculus. SPLEEN: Measures approximately 7.2 cm. AORTA: Limited views appear unremarkable. IVC: Limited views appear unremarkable. OTHER FINDINGS: None. IMPRESSION: Mild fullness of bilateral renal collecting systems. No evidence of obstructing calculi.
--- NOTE | 2018-07-24 12:49 | HP ---
DATE OF EXAM: 07/24/2018 LOCATION: The patient is seen in room 570, bed 2 lying in the bed. The patient's vital signs, lab data reviewed. The patient's history for detailed history, physical examination, please review the history and physical examination by the center medical and lab director. The patient's past medical history, active medical problems, chief complaints reviewed. Happy new year observed. IMPRESSION AND PLAN: 1. Left renal and ureteral colic. 2. Obstructive uropathy. 3. Left ureterovesicular junction obstructive uropathy with minimal hydronephrosis, hydroureter. 4. History of hypertension. 5. History of hypovitaminosis D. 6. Leukocytosis. 7 Normocytic anemia. 8. Possible iron-deficiency anemia. 9. Hyperglycemia. 10. Proteinuria, ketonuria, microscopic hematuria, pyuria, bacteriuria. 11. Left bundle-branch block. 12. Hypertensive cardiovascular disease. 13. Left obstructive uropathy with left ureterovesicular junction obstructive uropathy. 14. Left renal colic with left flank pain. 15. Diverticulosis of the colon. 16. Constipation. 17. History of tubal ligation, history of partial hysterectomy. 18. History of osteoporosis. 19. History of right breast biopsy. 20. Leukocytosis. PLAN: At this time, the patient has been admitted to [facility]. The patient has been ordered repeat CMP, LFT, magnesium, phosphorus in the morning. Hemoglobin A1c, fructosamine ordered, repeat CBC ordered. Blood urine cultures ordered. Consultation: Urology. Procalcitonin level ordered. CURRENT MEDICATIONS: Hydralazine 50 mg daily, Coreg 25 twice a day, Flomax 0.4 mg daily, IV Venofer 200 mg daily, morphine 1 mg IV every six hours p.r.n., Protonix 40 daily, Rocephin 2 g IV daily IV fluid 0.9 at 150 mL an hour x1 liter, then 0.9 normal saline at 100 mL an hour. Tylenol 650 mg p.o. suppository every 6 hours p.r.n., vancomycin 1 g IV one dose was given, Zofran 4 mg IV every 4 hours, vitamin D3 2000 IU daily, incentive spirometry. Chest PT, Urology evaluation ordered. Stool occult blood ordered. KATE stockings, SCDs, out of bed to chair ordered. At present, the patient's further management is dependent on the patient's clinical condition, hemodynamic status and as per the patient response to therapeutic intervention, as per the patient's diagnostic test results and as per recommendation by all the physicians involved in the care of the patient and as per the patient's diagnostic test results. Dictated and electronically signed, not read. Gonzalez Ackerman MD
[2018-07-24 12:53] LABS: TRANSFERRIN 199.11 mg/dL (206-381)
--- NOTE | 2018-07-24 13:17 | RAD ---
Date of service: 07/24/2018 PROCEDURE: CHEST RADIOGRAPH, 1 VIEW HISTORY: abdominal pain COMPARISON: None available. FINDINGS: LUNGS: Clear. PLEURA: No pneumothorax or pleural fluid seen. CARDIOVASCULAR: No aortic atherosclerotic calcification present. Normal. OSSEOUS STRUCTURES: No significant abnormalities. VISUALIZED UPPER ABDOMEN: Normal. OTHER FINDINGS: None. IMPRESSION: No active disease.
--- NOTE | 2018-07-24 14:28 | CARD ---
APPROVED REPORT Date of service: 07/24/2018 EXAM: Two-dimensional and M-mode echocardiogram with Doppler and color Doppler. INDICATION Congestive Heart Failure 2D DIMENSIONS Left Atrium (2D)4.4 (1.6-4.0cm)IVSd1.2 (0.7-1.1cm) LVDd4.5 (3.9-5.9cm)PWd1.2 (0.7-1.1cm) LVDs3.3 (2.5-4.0cm)FS (%) 27.3 % LVEF (%)53.3 (>50%) M-Mode DIMENSIONS Aortic Root2.80 (2.2-3.7cm)Aortic Cusp Exc.1.70 (1.5-2.0cm) Aortic Valve AoV Peak Pfgbdfqx195.0cm/Christiano Peak GR.18mmHg Mitral Valve MV E Cvgqrcvs629.0cm/sMV A Cwqmbeub438.0cm/sE/A ratio0.8 TDI Lateral E' Peak V6.63cm/sMedial E' Peak V5.36cm/sE/Lateral E'15.1 E/Medial E'18.7 Pulmonary Valve PV Peak Ipbklixf560.0cm/sPV Peak Grad.8mmHg Tricuspid Valve TR Peak [id number]/sRAP [id number] Peak Gr.33mmHg [id number] LEFT VENTRICLE The left ventricle is normal size. There is normal left ventricular wall thickness. The left ventricular ejection fraction is within the normal range. Septal hypokinesis Transmitral Doppler flow pattern is Grade I-abnormal relaxation pattern. RIGHT VENTRICLE The right ventricle is normal size. There is normal right ventricular wall thickness. The right ventricular systolic function is normal. ATRIA The left atrium is mildly dilated. The right atrium size is normal. AORTIC VALVE The aortic valve is normal in structure. No aortic regurgitation is present. There is no aortic valvular stenosis. MITRAL VALVE The mitral valve is normal in structure. Mitral regurgitation is trace. There is no mitral valve stenosis. TRICUSPID VALVE The tricuspid valve is normal in structure. There is mild tricuspid regurgitation. There is mild pulmonary hypertension. PULMONIC VALVE The pulmonary valve is normal in structure. There is no pulmonic valvular regurgitation. GREAT VESSELS The aortic root is normal in size. The IVC is normal in size and collapses >50% with inspiration. PERICARDIAL EFFUSION There is no pericardial effusion. <Conclusion> There is normal left ventricular wall thickness. The left ventricular ejection fraction is within the normal range. Septal hypokinesis Transmitral Doppler flow pattern is Grade I-abnormal relaxation pattern. There is mild tricuspid regurgitation. There is mild pulmonary hypertension.
[2018-07-24] MEDS ORDERED: Iohexol 240 (50 ml) IVP ONE (15:10)
[2018-07-24] MEDS ORDERED: Lactated Ringer's 1,000 ML IV SCH (16:00)
[2018-07-24] MEDS ORDERED: Iohexol 240 (50 ml) ONE (16:02)
[2018-07-24] MEDS ORDERED: Propofol 10 mg/ml Inj (20 ML) ONE (16:19)
[2018-07-24] MEDS ORDERED: Midazolam 2 MG/2 ML VIAL ONE (16:19)
[2018-07-24] MEDS ORDERED: Phenylephrine 10 mg/ml Inj ONE (16:24)
[2018-07-24] MEDS ORDERED: cefTRIAXone (Rocephin) 1 gm Inj IVPB ONE (17:02)
[2018-07-24] MEDS ORDERED: cefTRIAXone (Rocephin) 1 gm Inj ONE (17:05)
--- NOTE | 2018-07-24 17:36 | PCM.URO ---
Urology Progress Note - Objective Lab Studies: Reviewed (post op : full notes already dictated from gu standpoint pt clear for discharge) Lab Results Last 24 Hours: Laboratory Results - last 24 hr 07/24/18 07/24/18 07/24/18 04:15 04:15 05:50 WBC 16.0 H RBC 4.03 Hgb 10.9 L Hct 34.4 L MCV 85.4 MCH 27.0 MCHC 31.7 RDW 14.1 Plt Count 274 MPV 9.7 ESR Retic Count PT INR APTT Sodium 139 Potassium 4.3 Chloride 105 Carbon Dioxide 29 Anion Gap 9 L BUN 18 Creatinine 0.8 Est GFR ( Amer) > 60 Est GFR (Non-Af Amer) > 60 Random Glucose 136 H Hemoglobin A1c Lactic Acid Uric Acid Calcium 9.4 Iron TIBC % Saturation Transferrin Ferritin Total Bilirubin 0.2 AST 22 ALT 24 Alkaline Phosphatase 86 Total Protein 7.5 Albumin 4.1 Globulin 3.4 Albumin/Globulin Ratio 1.2 Lipase 39 25-OH Vitamin D Total Procalcitonin Free T4 Thyroxine (T4) TSH 3rd Generation Urine Color Yellow Urine Appearance Sl cloudy Urine pH 6.0 Ur Specific Arrey >= 1.030 Urine Protein 30 H Urine Glucose (UA) Negative Urine Ketones Trace H Urine Blood Large H Urine Nitrate Negative Urine Bilirubin Negative Urine Urobilinogen 0.2 Ur Leukocyte Esterase Small H Urine RBC 20 - 25 H Urine WBC 0 - 2 Ur Epithelial Cells 3 - 4 Urine Bacteria Mod 07/24/18 07/24/18 07/24/18 07:45 07:45 07:45 WBC RBC Hgb Hct MCV MCH MCHC RDW Plt Count MPV ESR Retic Count PT INR APTT Sodium Potassium Chloride Carbon Dioxide Anion Gap BUN Creatinine Est GFR ( Amer) Est GFR (Non-Af Amer) Random Glucose Hemoglobin A1c Lactic Acid 1.8 Uric Acid Calcium Iron 36 L TIBC 259 L % Saturation 14 L Transferrin Ferritin Total Bilirubin AST ALT Alkaline Phosphatase Total Protein Albumin Globulin Albumin/Globulin Ratio Lipase 25-OH Vitamin D Total 49.8 Procalcitonin < 0.05 L Free T4 Thyroxine (T4) TSH 3rd Generation Urine Color Urine Appearance Urine pH Ur Specific Arrey Urine Protein Urine Glucose (UA) Urine Ketones Urine Blood Urine Nitrate Urine Bilirubin Urine Urobilinogen Ur Leukocyte Esterase Urine RBC Urine WBC Ur Epithelial Cells Urine Bacteria 07/24/18 07/24/18 07/24/18 07:45 07:45 07:45 WBC RBC Hgb Hct MCV MCH MCHC RDW Plt Count MPV ESR Retic Count PT INR APTT Sodium Potassium Chloride Carbon Dioxide Anion Gap BUN Creatinine Est GFR ( Amer) Est GFR (Non-Af Amer) Random Glucose Hemoglobin A1c 6.1 Lactic Acid Uric Acid 4.4 Calcium Iron TIBC % Saturation Transferrin 199.11 L Ferritin 141.0 Total Bilirubin AST ALT Alkaline Phosphatase Total Protein Albumin Globulin Albumin/Globulin Ratio Lipase 25-OH Vitamin D Total Procalcitonin Free T4 1.00 Thyroxine (T4) 7.6 TSH 3rd Generation 1.10 Urine Color Urine Appearance Urine pH Ur Specific Arrey Urine Protein Urine Glucose (UA) Urine Ketones Urine Blood Urine Nitrate Urine Bilirubin Urine Urobilinogen Ur Leukocyte Esterase Urine RBC Urine WBC Ur Epithelial Cells Urine Bacteria 07/24/18 07/24/18 07:45 08:38 WBC RBC Hgb Hct MCV MCH MCHC RDW Plt Count MPV ESR 12 Retic Count 0.75 PT 10.8 INR 0.94 APTT 30.6 Sodium Potassium Chloride Carbon Dioxide Anion Gap BUN Creatinine Est GFR ( Amer) Est GFR (Non-Af Amer) Random Glucose Hemoglobin A1c Lactic Acid Uric Acid Calcium Iron TIBC % Saturation Transferrin Ferritin Total Bilirubin AST ALT Alkaline Phosphatase Total Protein Albumin Globulin Albumin/Globulin Ratio Lipase 25-OH Vitamin D Total Procalcitonin Free T4 Thyroxine (T4) TSH 3rd Generation Urine Color Urine Appearance Urine pH Ur Specific Arrey Urine Protein Urine Glucose (UA) Urine Ketones Urine Blood Urine Nitrate Urine Bilirubin Urine Urobilinogen Ur Leukocyte Esterase Urine RBC Urine WBC Ur Epithelial Cells Urine Bacteria Intake & Output: Intake & Output 07/23/18 07/24/18 07/24/18 18:59 06:59 18:59 Weight 165 lb Vital Signs: Vital Signs - 24 hr 07/24/18 07/24/18 07/24/18 03:46 03:58 06:00 Temperature 98.1 F Pulse Rate 71 72 Respiratory 18 18 Rate Blood Pressure 147/75 133/63 O2 Sat by Pulse 99 98 Oximetry 07/24/18 07/24/18 07/24/18 07:48 09:15 09:17 Temperature Pulse Rate 74 74 Respiratory 19 19 16 Rate Blood Pressure 122/54 L 122/54 L O2 Sat by Pulse 97 97 Oximetry 07/24/18 07/24/18 07/24/18 11:34 14:00 16:15 Temperature 98.2 F 98.8 F Pulse Rate 76 72 77 Respiratory 20 20 Rate Blood Pressure 131/64 143/64 153/64 H O2 Sat by Pulse 98 98 Oximetry 07/24/18 07/24/18 17:15 17:30 Temperature 98.4 F 98.4 F Pulse Rate 79 78 Respiratory 19 19 Rate Blood Pressure 134/75 144/64 O2 Sat by Pulse 99 99 Oximetry
--- NOTE | 2018-07-24 18:59 | CARD ---
APPROVED REPORT Date of service: 07/24/2018 EKG Measurement Heart [id number] <Conclusion> Normal sinus rhythm Left bundle branch block Abnormal ECG
[2018-07-24 23:12] VITALS: RESP 20; TEMP 98.2
[2018-07-25] MEDS ORDERED: Pantoprazole 40 mg EC Tab PO SCH (06:00)
[2018-07-25 07:42] LABS: ALB/GLOB RATIO 1.1 (1.1-1.8); ALBUMIN 3.3 g/dL (3.0-4.8); ALT/SGPT 22 U/L (7-56); AST/SGOT 20 U/L (14-36); BILIRUBIN,DIRECT 0.1 mg/dL (0.0-0.4); BLOOD UREA NITROGEN 11 mg/dL (7-21); CALCIUM 8.8 mg/dL (8.4-10.5); GFR NON-AFRICAN AMERICAN > 60; HDL CHOLESTEROL 47 mg/dL (29-60)
[2018-07-25 07:52] LABS: LDL CHOLESTEROL 65 mg/dL (0-129)
[2018-07-25 08:12] LABS: BASO # 0.02 K/mm3 (0.0-2.0); BASO % 0.2 % (0.0-3.0); EOS # 0.2 (0.0-0.7); EOS % 1.5 % (1.5-5.0); GRAN # 6.86 (1.4-6.5); GRAN % 70.2 % (50.0-68.0); HEMOGLOBIN 10.4 g/dL (12.0-16.0); LYMPH # 2.2 (1.2-3.4); LYMPH % 22.2 % (22.0-35.0); MEAN CELL VOLUME 85.2 fl (80.0-105.0); MEAN CORPUSCULAR HEMOGLOBIN 27.1 pg (25.0-35.0); MEAN CORPUSCULAR HGB CONC 31.8 g/dl (31.0-37.0); MEAN PLATELET VOLUME 9.9 fl (7.0-11.0); MONO # 0.6 (0.1-0.6); MONO % 5.9 % (1.0-6.0); RBC 3.84 10^6/uL (3.5-6.1); RED CELL DISTRIBUTION WIDTH 14.5 % (11.5-14.5); WHITE BLOOD COUNT 9.8 10^3/uL (4.5-11.0)
--- NOTE | 2018-07-25 08:12 | RAD ---
Date of service: 07/24/2018 PROCEDURE: Fluoroscopy up to 1 hr HISTORY: RETROGRADE PYELOGRAM / STENT INSERTION (LEFT) COMPARISON: TECHNIQUE: Fluoro time 4.6 sec. 1.44 mGy cumulative dose. Five images were submitted FINDINGS: The study shows placement of a left ureteral stent. The proximal pigtail is in a upper pole calyx. The distal end of the stent is in the bladder but the pigtail is not formed. IMPRESSION: As above
--- NOTE | 2018-07-25 08:58 | CON ---
DATE: 07/24/2018 UROLOGY CONSULTATION CHIEF COMPLAINT: Severe renal colic. HISTORY OF PRESENT ILLNESS: Ms. Max is a very pleasant lady who came to the emergency room with severe renal colic who was admitted now to the hospital and Urology consult has been consulted. The patient has severe left renal colic radiating to the groin. She is taking morphine and Dilaudid, with very little relief. See the size of the stone below. It is a 4-mm stone. See the plan as listed below. PAST MEDICAL HISTORY: As listed on the chart. PAST SURGICAL HISTORY: As listed on the chart. Patient of and patient of Dr. Ackerman. No history of [place] or CVA. SOCIAL HISTORY: She is here with her son and she is a retired group insurance specialist. She was in the insurance claims adjustment issues. MEDICATIONS: See the chart. ALLERGIES: SEE CHART. REVIEW OF SYSTEMS: Constitutionally, no weight loss, chest pains, night sweats, etc. PHYSICAL EXAMINATION: GENERAL: Well-developed female in no apparent stress. She is currently resting comfortably, but she recently received her morphine. Her son is at the bedside. He is visiting with her and on the phone; otherwise, unremarkable. VITAL SIGNS: Currently, vital signs within normal limits . LUNGS: Clear. ABDOMEN: Soft. There is no evidence of rebound or guarding. No evidence of an acute abdomen. No real CVA tenderness. PELVIC: mentioned, no pelvic or rectal masses are detected. LABORATORY DATA: See chart. White count noted. BUN and creatinine noted. CT scan noted. DIAGNOSES: Severe renal colic; left hydronephrosis; left ureteral stone, it is a 4-mm stone. This is a 73-year-old lady with a stone. I discussed the options including the possibility of what we are going to do for now, we are going to observe the patient. If she is not improving and she is still having pain, we did offer the possibility for cystoscopy and stent. We even discussed the possibility of ureteroscopy laser or ureteroscopy stone basketing. After discussing all these options clinically. IV fluid, hydration, keep her n.p.o., provide analgesics and make further plans. ADDENDUM: See the operative notes. Actually, the patient was having severe colic all day, required pain medicine back and forth and then after discussing the options, we will bring her to the operating room for cystoscopy and a stent insertion. After actually observing the patient and the timing of the day, etc., see the operative note, we are going to just put a stent in and not basket or laser the stone at this point. Further plans will follow. Russell Curtis MD
--- NOTE | 2018-07-25 08:59 | OP ---
PROCEDURE DATE: 07/24/2018 PREOPERATIVE DIAGNOSES: Urolithiasis, severe renal colic, left ureteral stone, left hydronephrosis and severe pain persistently. POSTOPERATIVE DIAGNOSES: Urolithiasis, severe renal colic, left ureteral stone, left hydronephrosis and severe pain persistently. PROCEDURE: Exam under anesthesia, cystoscopy, left retrograde pyelogram and insertion of left double J-stent. COMPLICATIONS: None. BLOOD LOSS: 10 mL. At the termination of the procedure, we had a good double-J stent in good location. At the termination of the procedure, the patient . INDICATION: See the history and physical for further details. Very pleasant lady who presents with severe colic. It is not getting better despite the small size of the stone. I discussed with her may be observing, but she is really having pain and requiring pain medicine all day. She is now here for the above procedure. UROLOGY FINDINGS: 1. Ureteral orifices are relatively clear from both sides. 2. Retrograde pyelogram was performed and showed some motion artifact. but in the end, we put a double J-stent in. There were no complications. DESCRIPTION OF PROCEDURE: After obtaining informed consent, the patient was placed on the table. Routine monitor was placed. Time-out was called to confirm the patient and positioning. Rocephin 1 g was given IV. The procedure continued with a cystoscope introduced via urethra. Ureteral orifice was identified. Retrograde pyelogram was performed. Some films were saved. Also, we did multiple fluoroscopic imaging. At this point, I put a wire up to the kidney, put a double J-stent in. The bladder was emptied and the cystoscope was removed. The patient tolerated the procedure well without complication. The plan will be for outpatient further treatment once the patient is feeling better. We will discuss further plans with the patient, . Russell Curtis MD
[2018-07-25] MEDS: cefTRIAXone 2 GM IN NS 2 GM/100 ML BAG IVPB SCH (10:47)
[2018-07-25] MEDS: Cholecalciferol 1,000 INTLU TAB PO SCH (10:48)
--- NOTE | 2018-07-25 12:32 | DS ---
LOCATION: The patient is in room 570, bed 2. HISTORY OF PRESENT ILLNESS: The patient was seen and examined. Overnight nurse's notes were reviewed. The patient underwent cystoscopy and retrograde pyelogram with placement of the left ureteral stent. Overnight nurse's notes were reviewed. The patient slept during the whole night as per the nurse's notes. No adverse events were documented or notified. PHYSICAL EXAMINATION: VITAL SIGNS: T-max 98.4, heart rate 74, blood pressure 129/68, respirations 20, O2 sat 97%. HEAD: Normocephalic, atraumatic. HEENT examination shows pinkish pale conjunctivae. Anicteric sclerae. No oropharyngeal lesion. No neck rigidity. CHEST: Kyphosis. LUNGS: Shows no audible crackle, rales or wheezing. CARDIOVASCULAR: S1, S2, regular rhythm. No audible murmur, gallop or rub at this time. ABDOMEN: Soft. Positive bowel sound. No palpable hepatosplenomegaly. Questionable mild left costovertebral angle tenderness noted. GENITALIA: Female. RECTAL: Deferred. EXTREMITIES: Shows no pitting edema, no calf tenderness, no Homans' sign. NEUROLOGIC: The patient is alert, awake, oriented x3, is able to move upper and lower extremities without assistance. Gait examination is not tested. DIAGNOSTIC DATA: From 07/25/2018, WBC 9.8, hemoglobin/hematocrit 10.4, 32.7, platelet 243. Sodium 141, potassium 3.5, chloride 110, CO2 26, BUN 11, creatinine 0.7, glucose 99, calcium 8.8, phosphorus 3.1, magnesium 1.9, hemoglobin A1c 6.1 g. LFTs are within normal limit. Cholesterol 127, LDL 65, iron is 36, TIBC 259, iron saturation 14. Echocardiogram shows left ventricle ejection fraction of 53%. Septal hypokinesis with grade 1 abnormal relaxation pattern, right ventricular systolic pressure 43 mmHg with mild pulmonary hypertension, mild tricuspid regurgitation. Ultrasound of the abdomen showed bilateral renal collecting system fullness. EKG shows left bundle branch block. FINAL IMPRESSION, PLAN AND DISCHARGE DIAGNOSES: 1. Left renal colic and ureteral colic. 2. Obstructive uropathy with mild hydronephrosis and hydroureter. 3. Left ureterovesicular junction obstructive nephrolithiasis. 4. Status post cystoscopy and retrograde pyelogram with left ureteral stent placement. 5. Iron-deficiency normocytic anemia. 6. Hypokalemia. 7. History of hypertension. 8. Hypovitaminosis D. 9. Left ventricular ejection fraction of 53%. 10. Septal hypokinesis with grade 1 abnormal relaxation pattern. 11. Mild pulmonary hypertension with right ventricular systolic pressure of 43 mmHg. 12. Mild tricuspid regurgitation. 13. Left bundle-branch block. 14. Bilateral renal collecting system fullness. 15. Possible prediabetes with hemoglobin A1c of 6.1 and hyperglycemia. PLAN: At this time, the patient is to be given potassium riders x2. The patient will be continued on IV antibiotics and the patient will be continued on IV fluid for today. The patient will be given the doses of iron infusion, IV Venofer. The patient will be considered for discharge today if after cleared by Urology. If the patient is cleared for discharge by Urology, the patient will be discharged home. Next discharge followup with Dr. Ackerman and Dr. Curtis within 1 week. Discharge medications as per the updated ambulatory orders. The patient will resume her Coreg, hydralazine and vitamin D. In addition, the patient has been given a prescription for ciprofloxacin 500 mg twice a day for 7-10 days and Percocet 5/325 one tablet every 8 hours p.r.n. #15 tablets. During this hospitalization, the patient was extensively explained about the details of her medical condition by me and urologist in layman's language. All questions concerned answered, which he acknowledged understood. Time spent in the discharge process 45 minutes. Dictated and electronically signed, not read. Gonzalez Ackerman MD
[2018-07-25 15:28] VITALS: BP 144/67; PULSE 70; O2SAT 100
[2018-07-27 12:46] LABS: GLYCOMARK(R) 20.2 mcg/mL (7.5-28.4)
== END 2018-07-25 15:39 | disposition home or self-care (01) ==
LOC: ED 03:36 → ERH 06:04 → 5RSO 09:11
PROVIDERS: ADMIT Internal Medicine; ATTEND Internal Medicine
DX: N13.6 Pyonephrosis (principal); D64.9 Anemia, unspecified; E11.65 Type 2 diabetes mellitus with hyperglycemia; E55.9 Vitamin D deficiency, unspecified; E87.6 Hypokalemia; I11.0 Hypertensive heart disease with heart failure; I27.20 Pulmonary hypertension, unspecified; I44.7 Left bundle-branch block, unspecified; I50.9 Heart failure, unspecified; K57.30 Diverticulosis of large intestine without perforation or abscess without bleeding; K59.00 Constipation, unspecified; M81.0 Age-related osteoporosis without current pathological fracture; Z90.710 Acquired absence of both cervix and uterus; Z98.51 Tubal ligation status
CPT/HCPCS: 36415; 52332; 71045; 74176; 76700; 80053; 80061; 81001; 82248; 82306; 82668; 82728; 82985; 83036; 83605; 83690; 83735; 84100; 84145; 84238; 84378; 84439; 84443; 84466; 84550; 85025; 85027; 85044; 85610; 85651; 85730; 87040; 87086; 93005; 93306; 96361; 96365; 96367; 96375; 96376; 99284; C1758; C1769; C2625; G0378; J0696; J1200; J1756; J2001; J2250; J2270; J2370; J2405; J2704; J2765; J3010; J3480; J7030; J7120; Q9966

== ENCOUNTER 2018-08-01 13:38 | Outpatient (CLI) | payer MEDICARE | END 2018-08-01 13:39 | disposition home or self-care (01) | LOC: RAD 13:38 | DX: R92.8 Other abnormal and inconclusive findings on diagnostic imaging of breast (principal) ==